=== PATIENT | male | born 1995 | race Caucasian/White ===

== ENCOUNTER 2021-07-14 12:16 | Emergency (ER) | payer BC, MEDICAID, SELFPAY ==
--- NOTE | 2021-07-14 12:24 | ED.URI ---
HPI - URI/Sore Throat General Chief Complaint: Upper Respiratory Infection Stated Complaint: cough Time Seen by Provider: 07/14/21 12:20 Source: patient and RN notes reviewed History of Present Illness HPI Narrative: Patient is a 25-year-old male who presents the urgent care complaints of a cough that started last night. Patient states he has had several coughing fits and has been taking [id number] Benadryl. Patient states he does have a history of allergies. Denies of any other upper respiratory complaints. Denies any ill contacts. Patient denies of any concern for Covid. No other acute complaints. No acute distress noted. Patient concern is a work note. Patient aware of the plan of care. Some parts of this dictation were generated by voice recognition software and may contain typographical and/or grammatical inaccuracies. Related Data Home Medications Medication Instructions Recorded Confirmed No Home Medications 07/14/21 07/14/21 Allergies Allergy/AdvReac Type Severity Reaction Status Date / Time No Known Allergies Allergy Unknown Verified 07/14/21 12:23 Review of Systems Review of Systems: CONSTITUTIONAL: Denies fever, chills, or sweats. EYES: Denies visual changes, redness, or discharge. ENT: Denies rhinorrhea, congestion, sore throat, or otalgia. CARDIOVASCULAR: Denies chest pain, palpitations, or edema. RESPIRATORY: Reports of cough without dyspnea. GASTROINTESTINAL: Denies abdominal pain, nausea, vomiting, or diarrhea. GENITOURINARY: Denies dysuria or hematuria. SKIN: Denies rash or itching. MUSCULOSKELETAL: Denies back pain, joint pain, or myalgia. NEUROLOGIC: Denies headache, numbness, or weakness. All other systems reviewed are negative, except as documented in HPI. PMFSH Comments At the time of my signature, I reviewed and agree with the nursing past medical, surgical, social, and family history. There is no relevant family history pertinent to the patient complaint. Exam Narrative: GENERAL: This is a well-nourished, well-developed patient, in no apparent distress. HEAD: normocephalic, atraumatic. EYES: PERRL. Sclera clear/white. Vision is grossly intact. EARS: External ears normal, auditory canals clear and without drainage, TMs normal without perforation. Hearing grossly intact. NOSE: External nose normal with no obvious nasal discharge, nares without redness, no rhinorrhea. THROAT: Mucous membranes moist mild erythema noted posterior oropharynx with moderate postnasal drainage NECK: Neck supple CARDIOVASCULAR: Regular rate and rhythm without murmurs, gallops, or rubs. RESPIRATORY: Clear to auscultation. Breath sounds equal bilaterally. No wheezes, rales, or rhonchi. SKIN: warm, intact with no suspicious lesions or rash, good texture and turgor. NEURO: awake, alert, and oriented to person, place and time. There were no obvious focal neurologic abnormalities. EXTREMITIES: No clubbing, cyanosis, or edema. Course Course Level of Care: Express Care Visit Vital Signs Vital signs: Vital Signs Temperature 98.6 F 07/14/21 12:26 Pulse Rate 94 07/14/21 12:26 Respiratory Rate 20 07/14/21 12:26 Blood Pressure 130/66 07/14/21 12:26 Pulse Oximetry 100 07/14/21 12:26 Temperature 98.6 F 07/14/21 12:26 Pulse Rate 94 07/14/21 12:26 Respiratory Rate 20 07/14/21 12:26 Blood Pressure 130/66 07/14/21 12:26 Pulse Oximetry 100 07/14/21 12:26 Reviewed MDM - URI/Sore Throat MDM Narrative Medical decision making narrative: Advised patient to continue axzn-iqv-nuzewed allergy medication at least for the next couple weeks. May use Benadryl at night. Use Flonase nasal spray. Use a humidifier. Do not sleep with the windows open or a fan on. Follow-up with your PCP within 2 to 5 days or for worsening symptoms or failure to improve. Differential Diagnosis Differential diagnosis: Likely upper respiratory infection, otitis media, sinusitis, viral infection, bronchitis, influ
[2021-07-14 12:26] VITALS: BP 130/66; PULSE 94; RESP 20; TEMP 37; O2SAT 100
== END 2021-07-14 12:47 | disposition home or self-care (01) ==
PROVIDERS: Emergency Provider Nurse Practitioner Family
DX: R05.9 Cough, unspecified (principal); Z86.16 Personal history of COVID-19
CPT/HCPCS: 99211; G0463